=== PATIENT | female | born 1955 | race Caucasian/White ===

== ENCOUNTER 2017-02-16 19:20 | Emergency (ER) | payer OTHER ==
[~2017-02-16] VITALS: Ht 165.1 cm; Wt 97.7 kg
[2017-02-16 19:25] VITALS: BP 154/99; PULSE 107; RESP 18; O2SAT 95
--- NOTE | 2017-02-16 20:06 | ED.REPORT ---
HPI-Chest Pain 40 and Over Date of Service Feb 16, 2017 ED Provider: Adelaide Albrecht MD Pt is a 61 y.o. female with a hx of SVT, HTN, and DM who presents to the ED c/o palpitations onset 1630 today. She reports associated chest tightness and feeling "cold and clammy". She denies associated SOB, diaphoresis, nausea, and vomiting. Nursing Notes Stated Complaint: HEART Chief Complaint: Chest Pain Nursing Notes Reviewed: Yes Allergies: Coded Allergies: procaine (Verified Allergy, Unknown, LIDOCAINE OK, EXCESSIVE SWELLING AND TENDERNESS, 02/16/17) Uncoded Allergies: SULFA (Allergy, Unknown, FLUE SYMPTONS, 09/06/09) General Time Seen by MD: 20:04 Chief Complaint Other (Palpitations) Hx Obtained From: Patient Arrived By: Walk-in Sudden in Onset?: Yes Onset Occurred: 1 - 4 hours ago Symptom Duration: Since onset Location: : Substernal Quality: Painful (Tightness) Severity: Current: Mild Past Medical History Past Medical History SVT Reports: Diabetes mellitus, Hypertension Past Surgical History Reports: Cholecystectomy Social History Alcohol Use: "Social" Ambulatory Status Independent Review of Systems Cold and clammy Respiratory: Denies: Shortness of breath Cardiovascular: Reports: Chest pain (Tightness), Palpitations GI: Denies: Nausea, Vomiting Skin: Denies Diaphoresis Complete sys rev & neg: except as marked. Physical Exam Initial Vital Signs Vital Signs (First) Date Time Temp Pulse Resp B/P Pulse Ox O2 Delivery O2 Flow Rate FiO2 02/16/17 19:25 36.1 107 18 154/99 95 Room Air Initial VS: Reviewed Head / Eyes: Atraumatic, Normocephalic, PERRL Extremities: Vascular intact, Neuro intact Skin: Warm, Dry, No cyanosis Neurologic: Alert, Oriented, Nonfocal Psychiatric: Mood/affect normal, Behavior normal, Normal thought content General/Constitutional: Awake, Alert, No acute distress, Well appearing, Well developed, Well hydrated, Well nourished, Not toxic appearing Respiratory / Chest: Atraumatic, Breath sounds NL, Breath sounds = bilat, No respiratory distress Cardiovascular: Heart rate NL, Heart sounds NL Heart Rate / Rhythm: Positive: Tachycardia Abdomen: Atraumatic, No distention Interpretation & Diagnostics Lab Results Interpretation Result Diagram: 02/16/17200102/16/172001 Test 02/16/17 20:02 02/16/17 23:05 White Blood Count 9.0th/mm3 (3.8-10.1) Red Blood Count 4.81mil/mm3 (3.90-5.20) Hemoglobin 14.3g/dL (12.0-15.6) Hematocrit 42.5% (35.0-46.0) Mean Corpuscular Volume 88.4fL (81-100) Mean Corpuscular Hemoglobin 29.7pg (27.0-35.0) Mean Corpuscular Hemoglobin Concent 33.6% (32.0-37.0) Red Cell Distribution Width 13.1% (12.3-15.4) Platelet Count 228bil/L (150-400) Neutrophils (%) (Auto) 58.8% (40-74) Lymphocytes (%) (Auto) 31.8% (14-46) Monocytes (%) (Auto) 7.4% (4-12) Eosinophils (%) (Auto) 1.4% (0-5) Basophils (%) (Auto) 0.4% (0-3) Sodium Level 142mEq/L (134-144) Potassium Level 4.3mEq/L (3.5-5.2) Chloride Level 101mEq/L (97-108) Carbon Dioxide Level 24mmol/L (18-29) Blood Urea Nitrogen 20mg/dL (8-27) Creatinine 0.74mg/dL (0.57-1.00) Estimat Glomerular Filtration Rate 115mL/min (>59) Glucose Level 121mg/dL (60-99) Calcium Level 10.0mg/dL (8.5-10.1) Magnesium Level 2.0mg/dL (1.6-2.6) Total Bilirubin < 0.2mg/dL (0.0-1.2) Aspartate Amino Transf (AST/SGOT) 22U/L (0-50) Alanine Aminotransferase (ALT/SGPT) 21U/L (0-32) Alkaline Phosphatase 65U/L (25-165) Total Protein 7.3g/dL (6.4-8.4) Albumin 3.9g/dL (3.4-5.0) Hold Adamson Top Tube Received (Received) Troponin T < 0.010ug/L (0.0-0.011) General Lab Results Interp 1: Troponin # 1 normal, Troponin # 2 normal ECG Interpretation ECG Interpretation: No ST elevation T-wave inversion in AVR and V1 Time: 19:31 Interpreted by: ED physician Rhythm / Conduction: Tachycardia (rate of 102) ECG Interpretation: No ST elevation T-wave inversion in AVR No change from prior. Time: 23:05 Interpreted by: ED physician Normal ECG Interpretation: Normal rate (73), Normal sinus rhythm X-Ray Chest Interpretation Chest Xray Interpretation: IMPRESSION: No acute or active disease is seen in the semi-upright portable chest. Dictated by: Damian Rausch M.D. on 02/16/2017 at 20:07 Approved by: Damian Rausch M.D. on 02/16/2017 at 20:08 Re-Eval/Medical Decision Med Decision/Clinical Course 61-year-old female with past medical history of SVT and hypertension here with palpitations and chest pain. Differential diagnosis includes but is not limited to ST elevation OR versus non-ST elevation OR versus SVT versus anxiety. He should not EKGs are normal and unchanged 3 hours apart, show no sign of active SVT, and no sign of ST elevation OR. CBC and CMP were unremarkable. Troponins 2, 3 hours apart were both negative. As patient is low risk, I do not feel she has ACS at this time, and is amenable to discharge with follow-up with her primary care physician. Source of Hx: Old records Time of Eval: 00:08 Re-Evaluation/Progress Note: Pt rechecked. Discussed lab results and plan for discharge, pt undertsands and agrees with plan. Counseled Regarding: Diagnosis, Lab results, Need for follow-up, When/why to return to ED Discharge & Departure Primary Impression: Non-cardiac chest pain Disposition: Home Discharge Condition All VS Reviewed: Yes Condition: No Change Additional Instructions: Thank you for entrusting us with your care today. You lab work, EKG's, and chest x-ray were all reassuring and I do not see a serious mechanism for your palpitations and chest tightness. I recommend you call your primary care provider on Saturday to schedule an appointment and discuss further work-up. Return if you experience difficulty breathing, worsening chest pain, weakness, numbness and tingling in your extremities, or any new or worsening symptoms. Referrals: Mee Pat MD (PCP/Family) Eusebio Attestation Portions of this note were transcribed by Khadar Ramires. I, Dr. Albrecht personally performed the history, physical exam and medical decision-making; I reviewed and confirmed the accuracy of the information in the transcribed note. Signed by : Eusebio Tafoya, 02/17/17 and 0009. copies to: Mee Pat MD, Rebecca A MD Feb 16, 2017 20:06 KHADAR RAMIRES Feb 16, 2017 22:13
--- NOTE | 2017-02-16 20:09 | DRSVH ---
PROCEDURE: X-RAY CHEST ONE VIEW, PORTABLE ([id number]) INDICATIONS: chest tightness TECHNIQUE: One view of the chest was acquired. COMPARISON: None. FINDINGS: Surgical changes and devices: cigar head pegger leads are seen over the chest. Lungs and pleura: No pleural effusions or pneumothorax. Lungs are clear. Pulmonary vasculature is n ormal. Mediastinum: Mediastinal contours appear normal. Heart size is normal. Bones and chest wall: No suspicious bony lesions. Overlying soft tissues appear unremarkable. IMPRESSION: No acute or active disease is seen in the semi-upright portable chest. Dictated by: Damian Rausch M.D. on 02/16/2017 at 20:07 Approved by: Damian Rausch M.D. on 02/16/2017 at 20:08
[2017-02-16 20:11] VITALS: BP 132/69; PULSE 103; RESP 24; O2SAT 95
[2017-02-16 20:13] LABS: BASOPHILS % (AUTO) 0.4 % (0-3); EOSINOPHILS % (AUTO) 1.4 % (0-5); MONOCYTES % (AUTO) 7.4 % (4-12); Mean Corpuscular Hemoglobin 29.7 pg (27.0-35.0); Mean Corpuscular Volume 88.4 fL (81-100); NEUTROPHILS % (AUTO) 58.8 % (40-74); Platelet Count 228 bil/L (150-400)
[2017-02-16 21:12] LABS: TROPONIN T < 0.010 ug/L (0.0-0.011)
[2017-02-16 21:18] VITALS: BP 123/64; PULSE 79; RESP 13; O2SAT 95
[2017-02-17 00:21] VITALS: BP 120/76; PULSE 72; RESP 22; O2SAT 95
[2017-05-01] MEDS ORDERED: CYAN-2 SL (10:37)
[2017-05-01] MEDS ORDERED: FLUT16SP NS (10:37)
[2017-05-01] MEDS ORDERED: LISI-571 PO (10:37)
[2017-05-01] MEDS ORDERED: MUPI22OI2 TOP (10:37)
[2017-05-01] MEDS ORDERED: CHOL10008 PO (10:37)
[2017-05-01] MEDS ORDERED: CHOL4PAC17 PO (10:37)
[2017-05-01] MEDS ORDERED: MULT-1018 PO (10:37)
[2017-05-01] MEDS ORDERED: OXYB5TAB10 PO (10:37)
[2017-05-01] MEDS ORDERED: IBUP200C11 PO (10:37)
== END 2017-02-17 00:21 | disposition home or self-care (01) ==
LOC: SED 19:20
DX: R07.89 Other chest pain (principal); I10 Essential (primary) hypertension; E11.9 Type 2 diabetes mellitus without complications; Z88.8 Allergy status to other drugs, medicaments and biological substances

== ENCOUNTER 2017-05-02 08:39 | Day surgery (SDC) | payer OTHER ==
[~2017-05-02] VITALS: Ht 165.1 cm; Wt 99.8 kg
[~2017-05-02 08:39] MED LIST: CHOL10008 PO; CHOL4PAC17 PO; CYAN-2 SL; FLUT16SP NS; IBUP200C11 PO; LISI-571 PO; MULT-1018 PO; MUPI22OI2 TOP; OXYB5TAB10 PO; Sodium Chloride LOK Flush 10 mL Syringe IV PRN; fentaNYL-PF 50 mCg/mL 2 mL Inj IVPUSH PRN
[2017-05-02 08:59] VITALS: BP 133/78; PULSE 67; RESP 16; O2SAT 99
[2017-05-02] MEDS: 0.9% Sodium Chloride 1,000 ML IV SCH ×3 (09:10→09:33)
[2017-05-02 09:43] VITALS: BP 92/46; PULSE 71; RESP 17; O2SAT 99
[2017-05-02 09:53] VITALS: BP 112/75; PULSE 74; RESP 16; O2SAT 96
--- NOTE | 2017-05-02 10:20 | ENDO ---
[address] [address] ENDOSCOPY PROCEDURE PATIENT: RADHA TALLEY : 1955 MR#: [id number] ADMIT: 05/02/2017 JOB ID: [id number] PROCEDURE: Colonoscopy. INDICATION: Screening. Patient's ASA classification is two. Mallampati score is two. MEDICATIONS: 1. Versed 4 mg. 2. Fentanyl 100 mcg. INSTRUMENT USED: PCF-H180AL. PREP QUALITY: Good. PROCEDURE DETAILS: After informed consent was obtained, the patient was brought to the GI suite, where she was placed on oxygen via nasal cannula and monitored with continuous pulse oximeter, telemetry, and blood pressure monitoring. A time-out was performed. Then, he was placed in a left lateral decubitus position and medications were administered for sedation. Digital rectal exam was performed, which was unremarkable. Colonoscope was then inserted into the rectum and advanced under direct visualization to the cecum, which was identified by the presence of the ileocecal valve and appendiceal orifice. Once the cecum was reached, the colonoscope was withdrawn back into the rectum as the mucosa and lumen were examined. In the rectum, retroflexion was performed. Following retroflexion, remaining air in the rectum was suctioned, and procedure was completed. FINDINGS: 1. In the cecum there was an approximately 6-7 mm flat polyp that was lifted using normal saline and removed with a hot snare. 2. Scattered diverticula were seen throughout the sigmoid colon. IMPRESSION: 1. Cecal polyp. 2. Sigmoid diverticulosis. RECOMMENDATIONS: 1. Avoid NSAIDs and anticoagulants for 72 hours. 2. Fiber rich diet. 3. Repeat colonoscopy in five years. COMPLICATIONS: None. ESTIMATED BLOOD LOSS: Less than zero.
--- NOTE | 2017-05-03 13:07 | PATH ---
SURGICAL PATHOLOGY Attending Physician:Jessi Traore CASE STATUS: Signed Out PATIENT NAME: RADHA TALLEY PID: [id number] : 1955 DATE COLLECTED:05/02/2017 15:53 SPECIMEN: Colon, Polyp CLINICAL HISTORY: 1. 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 Submitted in one cassette in total. [id number]) MICRO DESCRIPTION: See diagnosis. ICD-9 CODES: CPT CODES: 1: 35670 Electronically Signed Out Jamie Davis MD [facility] [address], [place] [address] Technical component performed at [facility], [facility] [address], [place], [address]
== END 2017-05-02 23:59 | disposition home or self-care (01) ==
LOC: END 08:39
PROVIDERS: ATTEND Internal Medicine Gastroenterology
DX: Z12.11 Encounter for screening for malignant neoplasm of colon (principal); Z86.010 Personal history of colon polyps; D12.0 Benign neoplasm of cecum; K57.30 Diverticulosis of large intestine without perforation or abscess without bleeding; I10 Essential (primary) hypertension; R73.03 Prediabetes; J30.2 Other seasonal allergic rhinitis; M54.9 Dorsalgia, unspecified; K90.9 Intestinal malabsorption, unspecified; E66.8 Other obesity; Z68.36 Body mass index [BMI] 36.0-36.9, adult
CPT/HCPCS: 45381; 45385; G0500; J2250; J3010; J7030